=== PATIENT | female | born 1960 | race Caucasian/White ===

== ENCOUNTER 2018-10-30 18:34 | Emergency (ER) | payer SELFPAY ==
[~2018-10-30] VITALS: Ht 157.4 cm; Wt 72.6 kg
[2018-10-30] MEDS ORDERED: NAPROSYN500 MG PO (19:03)
[2018-10-30] MEDS ORDERED: AUGMENTIN 875-875 MG PO (19:03)
== END 2018-10-30 19:23 | disposition home or self-care (01) ==
LOC: ED 18:34
DX: K04.7 Periapical abscess without sinus (principal); K02.9 Dental caries, unspecified; Z91.040 Latex allergy status